=== PATIENT | male | born 1990 | race Caucasian/White ===

== ENCOUNTER 2022-01-14 15:09 | Emergency (ER) | payer MEDICAID, SELFPAY ==
[2022-01-14 15:35] VITALS: BP 127/86; PULSE 70; RESP 19; TEMP 36.7; O2SAT 98; BMI 22.1
[2022-01-14 15:53] LABS: UTC Influenza A Antigen Negative (Negative); UTC Influenza B Antigen Negative (Negative)
--- NOTE | 2022-01-14 15:55 | HMH.EDUTC ---
[facility] [place] Disposition Clinical Impression: Viral syndrome Disposition: Home, Self-Care Condition on Discharge: Good Instructions: DI for Viral Syndrome, DI for Fever (Symptom) -- Adult, DI for Headache Additional Instructions: *Monitor Temp, Over the counter Motrin or Tylenol as directed/as needed Tylenol every 4 hours and Motrin every 6 hours (as long as your family doctor has told you that you can take it) for fever or pain. and straight to ER if unable to lower temp less than 101.0 after medication given *Warm salt water gargles may help to soothe the throat *Throat Lozenges *Warm fluids like tea with honey may help to soothe the throat *Sleep elevated *Humidifier/Vaporizer Follow up IMMEDIATELY for new or worsening symptoms or no Noticeable improvement over the next 48-72 hours. 911 for difficulty breathing or swallowing Referrals: Reno Guerra MD [Primary Care Provider] - As needed Forms: Work/School Release Medical Decision Making - Willem Inquiry Pt receiving controlled substance: No Willem was queried for this patient: No Vital Signs: 01/14/22 15:35 Temperature 98.1 F Temperature Source Oral Pulse Rate [Right Brachial] 70 Respiratory Rate 19 Blood Pressure [Right Arm] 127/86 Blood Pressure Mean [Right Arm] 99 Blood Pressure Source [Right Arm] Automatic Cuff Blood Pressure Position [Right Arm] Sitting 02 Sat by Pulse Oximetry 98 Oxygen Delivery Method Room Air - Lab Data Lab results reviewed: Yes: I reviewed the patient's lab results. Lab Results 01/14/22 15:52: Influenza Type A Ag Negative, Influenza Type B Ag Negative [facility] [place] HPI - General Stated complaint: SAENZ Time Seen by Provider: 01/14/22 15:45 Mode of Arrival: Ambulatory Source of Information: Patient Limitations: No Limitations Description of Symptoms (Recalled from Triage Doc. 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 and he was unable to go to work today States that work required him to come in and get a doctor note State that he is feeling better now after taking some Motrin and just wanted to get checked for flu - Related Data Previous Rx's Medication Instructions Recorded sulfacetamide sodium 10 % eye drops 1 drp OPHTHALMIC QID 7 Days #5 ml 10/12/19 Allergies Allergy/AdvReac Type Severity Reaction Status Date / Time No Known Allergies Allergy Verified 10/12/19 15:57 - Worker's Comp Is this a Worker's Comp case?: No [facility] History - Hepatitis A Screen Attestation statement:: This patient has been screened for Hepatitis A risk factors. I have reviewed the patient's past medical history: Yes Medical History: Denies:: Cancer, Diabetes Mellitus Type 1, Diabetes Mellitus Type 2, MRSA Other Surgeries: Yes: No Previous Surgery Amputation: No Fractures: No - Social History Smoking Status: Current every day smoker Tobacco Type: cigarettes, smokeless tobacco # Packs/Day (cigarettes): 1 Alcohol Intake: never Substance Use Type: marijuana Occupational Status: other Housing: house Household Members: family Family Hx:: Non-contributory ROS Obtained: Yes All systems reviewed & no additional complaints, Yes Systems reviewed as appropriate & no additional complaints - Constitutional Constitutional: Reports system reviewed and no additional complaints, except as docu, Reports body ache, Reports fever(s), Reports headache(s) - ENT Ears, Nose, Mouth, and Throat: Reports system reviewed and no additional complaints, except as docu - Cardiovascular Cardiovascular: Reports system reviewed and
[2022-01-14 16:03] VITALS: BP 127/86; PULSE 70; RESP 19; TEMP 36.7; O2SAT 98
== END 2022-01-14 16:10 | disposition home or self-care (01) ==
PROVIDERS: Emergency Provider Nurse Practitioner; PCP Internal Medicine Adolescent Medicine
DX: B34.9 Viral infection, unspecified (principal); R50.9 Fever, unspecified; F17.210 Nicotine dependence, cigarettes, uncomplicated
CPT/HCPCS: 87804; 99212; G0463

== ENCOUNTER 2022-01-29 14:24 | Emergency (ER) | payer MEDICAID, SELFPAY ==
[2022-01-29 14:40] VITALS: BP 131/89; PULSE 77; RESP 19; TEMP 37.1; O2SAT 98; BMI 19.9
--- NOTE | 2022-01-29 15:37 | HMH.EDUTC ---
[facility] [place] Clinical Impression: Cough Disposition: Home, Self-Care Condition on Discharge: Good Instructions: Cough, DI for Headache Additional Instructions: Over the counter cough medications like Robitussin may help with cough Over the counter Ibuprofen may help with headache and if you need something else Tylenol may help Return if needed Straight to ER if any life threatening symptoms Referrals: Bonita Steiner MD [Primary Care Provider] - As needed Forms: Work/School Release Time of Disposition: 15:40 Medical Decision Making - Willem Inquiry Pt receiving controlled substance: No Willem was queried for this patient: No Vital Signs: 01/29/22 14:40 Temperature 98.7 F Temperature Source Oral Pulse Rate [Right Brachial] 77 Respiratory Rate 19 Blood Pressure [Right Arm] 131/89 Blood Pressure Mean [Right Arm] 103 Blood Pressure Source [Right Arm] Automatic Cuff Blood Pressure Position [Right Arm] Sitting 02 Sat by Pulse Oximetry 98 Oxygen Delivery Method Room Air [facility] [place] HPI - General Stated complaint: h/a, cough Time Seen by Provider: 01/29/22 15:37 Mode of Arrival: Ambulatory Source of Information: Patient Limitations: No Limitations Description of Symptoms (Recalled from Triage Doc. by RN): PATIENT C/O COUGH AND HEADACHE X 3 DAYS HEENT Symptoms (Recalled from RN notes): Yes Resp Symptoms (Recalled from RN notes): Yes Skin Symptoms (Recalled from RN notes): No MS Symptoms (Recalled from RN notes): No Functional Status (Recalled from RN notes): WNL - History of Present Illness Provider Complaint: Patient states that he has been working alot and thinks he is run down States that he has had a little cough for several days and woke up this morning with a headache States that he took some OTC medication and his headache is better but wasnt able to go to work so needed to get seen for a note - Related Data Allergies Allergy/AdvReac Type Severity Reaction Status Date / Time No Known Allergies Allergy Verified 10/12/19 15:57 - Worker's Comp Is this a Worker's Comp case?: No [facility] History - Hepatitis A Screen Attestation statement:: This patient has been screened for Hepatitis A risk factors. I have reviewed the patient's past medical history: Yes Medical History: Denies:: Cancer, Diabetes Mellitus Type 1, Diabetes Mellitus Type 2, MRSA Other Surgeries: Yes: No Previous Surgery Amputation: No Fractures: No - Social History Smoking Status: Current every day smoker Tobacco Type: cigarettes, smokeless tobacco # Packs/Day (cigarettes): 1 Alcohol Intake: never Substance Use Type: marijuana Occupational Status: other Housing: house Household Members: family Family Hx:: Non-contributory ROS Obtained: Yes All systems reviewed & no additional complaints, Yes Systems reviewed as appropriate & no additional complaints - Constitutional Constitutional: Reports system reviewed and no additional complaints, except as docu, Denies body ache, Denies chills, Denies fever(s), Reports headache(s) - ENT Ears, Nose, Mouth, and Throat: Reports system reviewed and no additional complaints, except as docu, Denies nasal congestion, Denies nasal discharge, Denies sinus pain, Denies sinus pressure, Denies sore throat - Cardiovascular Cardiovascular: Reports system reviewed and no additional complaints, except as docu - Respiratory Respiratory: Reports system reviewed and no additional complaints, except as docu, Denies shortness of breath, Reports cough, Denies dyspnea - Gastrointestinal Gastrointestingal: Reports: system reviewed and no additional complaints, except as docu Physical Exam - General General appearance: alert, in no apparent distress - Eye Eye exam: Present: normal appearance, PERRL, EOMI - ENT ENT exam: Present: normal exam, normal oropharynx, mucous membranes moist, TM's normal bilaterally, normal external ear exam - Respiratory Respiratory exam: Present: normal lung sounds
[2022-01-29 15:43] VITALS: BP 131/89; PULSE 77; RESP 19; TEMP 37.1; O2SAT 98
== END 2022-01-29 15:44 | disposition home or self-care (01) ==
PROVIDERS: Emergency Provider Nurse Practitioner; PCP Family Medicine
DX: R05.9 Cough, unspecified (principal); R51.9 Headache, unspecified
CPT/HCPCS: 99212; G0463

== ENCOUNTER 2022-02-09 15:36 | Emergency (ER) | payer OTHER, MEDICAID, SELFPAY ==
--- NOTE | 2022-02-09 16:11 | HMH.EDUTC ---
[facility] [place] Disposition Clinical Impression: Tonsillitis Disposition: Home, Self-Care Condition on Discharge: Good Instructions: DI for Strep Throat Additional Instructions: Take all antibiotics as prescribed until gone Replace toothbrush Prescriptions: Amoxicillin [Amoxicillin 875MG Tab] 875 mg PO Q12H 10 Days #20 tab Transmission Status: Pending to [id number] Ondansetron [Ondansetron Odt 8mg Tab] 8 mg PO Q8HP PRN 5 Days #20 tab PRN Reason: Nausea Transmission Status: Pending to [id number] Referrals: Reno Guerra MD [Primary Care Provider] - Forms: Work/School Release Time of Disposition: 16:20 Medical Decision Making - Willem Inquiry Pt receiving controlled substance: No - Lab Data Lab results reviewed: Yes: I reviewed the patient's lab results. Lab Results 02/09/22 16:00: Group A Strep Rapid Negative Orders (Tests/Meds): ORDERS Category Date Time Status Strep Screen Confirmation Stat Micro 02/09/22 16:00 Received [facility] [place] HPI - General Stated complaint: congestion and cough Time Seen by Provider: 02/09/22 16:11 - History of Present Illness Provider Complaint: Headache, sore throat, body aches, chills, nausea/vomiting X 2 days. No diarrhea. 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 Onset (ago): day(s) (2) Location: head, abdomen Relieving factors: none Exacerbating factors: none Associated symptoms: fever/chills, headaches, nausea/vomiting Treatments prior to arrival: NSAID - Related Data Previous Rx's Medication Instructions Recorded Amoxicillin [Amoxicillin 875MG 875 mg PO Q12H 10 Days #20 tab 02/09/22 Tab] Ondansetron [Ondansetron Odt 8mg 8 mg PO Q8HP PRN 5 Days #20 tab 02/09/22 Tab] Allergies Allergy/AdvReac Type Severity Reaction Status Date / Time No Known Allergies Allergy Verified 10/12/19 15:57 [facility] History - Hepatitis A Screen Attestation statement:: This patient has been screened for Hepatitis A risk factors. I have reviewed the patient's past medical history: Yes Medical History: Denies:: Cancer, Diabetes Mellitus Type 1, Diabetes Mellitus Type 2, MRSA Other Surgeries: Yes: No Previous Surgery Amputation: No Fractures: No - Social History Smoking Status: Current every day smoker Tobacco Type: cigarettes, smokeless tobacco # Packs/Day (cigarettes): 1 Alcohol Intake: never Substance Use Type: marijuana Occupational Status: other Housing: house Household Members: family Family Hx:: Non-contributory ROS Obtained: Yes All systems reviewed & no additional complaints - Constitutional Constitutional: Reports body ache, Reports chills, Reports fatigue, Reports fever(s), Reports headache(s) - ENT Ears, Nose, Mouth, and Throat: Reports sore throat - Respiratory Respiratory: Reports cough - Gastrointestinal Gastrointestingal: Reports: nausea, vomiting Physical Exam - General General appearance: alert, in no apparent distress - Head Head exam: normocephalic - Eye Eye exam: Present: PERRL - ENT ENT exam: Present: TM's normal bilaterally - Expanded ENT Exam Throat exam: Present: tonsillar erythema, tonsillomegaly, tonsillar exudate - Neck Neck exam: Present: normal inspection. Absent: lymphadenopathy - Chest Chest inspection: Present: normal inspection, symmetric chest wall rise - Respiratory Respiratory exam: Present: normal lung sounds bilaterally. Absent: respiratory distress, wheezes - Cardiovascular Cardiovascular exam: Present: regular rate, normal rhythm - Neurological Exam Neurological exam: Present: alert, oriented X3 - Psychiatric Psychiatric exam: Present: normal affect, normal mood - Skin Skin exam: Present: warm, dry, intact
[2022-02-09 16:13] LABS: Strep Scrn Group A (Rapid) Negative (Negative)
[2022-02-09 16:20] VITALS: BP 121/76; PULSE 89; RESP 17; TEMP 36.7; O2SAT 95; BMI 21.2
[2022-02-09 16:24] VITALS: BP 121/76; PULSE 89; RESP 17; TEMP 36.7
[2022-02-09 16:25] LABS: UTC Influenza A Antigen Negative (Negative); UTC Influenza B Antigen Negative (Negative)
== END 2022-02-09 16:25 | disposition home or self-care (01) ==
PROVIDERS: Emergency Provider Physician Assistant; PCP Internal Medicine Adolescent Medicine
DX: J02.9 Acute pharyngitis, unspecified (principal); R11.2 Nausea with vomiting, unspecified; M79.10 Myalgia, unspecified site; R50.9 Fever, unspecified; R51.9 Headache, unspecified; F17.210 Nicotine dependence, cigarettes, uncomplicated
CPT/HCPCS: 87430; 87804; 99213; G0463

== ENCOUNTER 2022-07-01 18:12 | Emergency (ER) | payer MEDICAID, SELFPAY ==
[2022-07-01 20:16] VITALS: BP 125/67; PULSE 79; RESP 19; TEMP 36.7; O2SAT 98; BMI 21.7
--- NOTE | 2022-07-01 20:20 | EXP.UTC ---
Discharge Plan Disposition Patient Disposition: Home, Self-Care Condition: Good Prescriptions Prescriptions: No Action ondansetron 8 MG tablet,disintegrating 8 mg PO Q8HP PRN (Reason: Nausea) 5 Days Qty: 20 0RF amoxicillin 875 MG tablet 875 mg PO Q12H 10 Days Qty: 20 0RF Referrals Follow up/Referrals: Provider,Referral, [Primary Care Provider] - See instructions Activity Restrictions/Add. Instructions Additional Instructions/Restrictions: *Monitor Temp, Over the counter Motrin or Tylenol as directed/as needed Tylenol every 4 hours and Motrin every 6 hours (as long as your family doctor has told you that you can take it) for fever or pain. and straight to ER if unable to lower temp less than 101.0 after medication given *Warm salt water gargles may help to soothe the throat *Throat Lozenges? *Warm fluids like tea with honey may help to soothe the throat? *Sleep elevated *Humidifier/Vaporizer Your throat swab was sent for culture. Those results are typically sent to your primary care. Be sure to follow up in 2-3 days with your family doctor/primary care physician if no improvement so they can review those result and treat if necessary. If you don?t have a primary care doctor, I recommend you get one but in the mean time, you will have to return to a walk in clinic Follow up IMMEDIATELY for new or worsening symptoms or no Noticeable improvement over the next 48-72 hours. 911 for difficulty breathing or swallowing You were tested for today for COVID19 your test result should be back in the next 24-48 hours, you may check your results on the [facility] [employer] Portal Clinical Impressions Clinical Impression: Viral syndrome Stand Alone Forms Stand Alone Forms: Work/School Release Instructions Patient Instructions: DI for Viral Upper Respiratory Infection -- Adult Discharge ED Provider: Carole Bernabe [facility] [place] HPI General Stated complaint: congesting cough Mode of Arrival: Ambulatory Source of Information: Patient Limitations: No Limitations Time Seen by Provider: 07/01/22 20:20 Description of Symptoms (Recalled from Triage Doc. by RN): coughing sneezing body aches fever HEENT Symptoms (Recalled from RN notes): Yes Resp Symptoms (Recalled from RN notes): Yes Skin Symptoms (Recalled from RN notes): No MS Symptoms (Recalled from RN notes): No Functional Status (Recalled from RN notes): n/a History of Present Illness Provider Complaint: Patient states that he was around his wifes friend that tested positive for Strep today States that he started feeling bad on Friday but today started having body aches, chills sneezing and low grade fever so he came in wanting to get checked for COVID and strep throat Related Data Previous Rx's Medication Instructions Recorded amoxicillin 875 mg tablet 875 mg PO Q12H 10 days #20 tabs 02/09/22 ondansetron 8 mg disintegrating 8 mg PO Q8HP PRN Nausea 5 days #20 02/09/22 tablet tabs Allergies Allergy/AdvReac Type Severity Reaction Status Date / Time No Known Allergies Allergy Verified 10/12/19 15:57 Worker's Comp Is this a Worker's Comp case?: No PFSH PFSH Social History Smoking Status: Current every day smoker tobacco type: cigarettes packs per day: 1 and smokeless tobacco alcohol intake: never substance use type: marijuana current occupational status: other Travel in the last 8 weeks: None household members: family housing: house ROS Obtained: Yes All systems reviewed & no additional complaints except as documented and Yes Systems reviewed as appropriate & no additional complaints except as documented Constitutional Constitutional: Reports system reviewed and no additional complaints, except as documented, Reports as per HPI, Reports body ache, Reports chills and Reports fever(s) ENT Ears, Nose, Mouth, and Throat: Reports system reviewed and no additional complaints, except as documented, Reports as per HPI, Reports n
[2022-07-01 20:24] LABS: UTC Influenza A Antigen Negative (Negative); UTC Influenza B Antigen Negative (Negative); UTC Strep Screen (Rapid) Negative (Negative)
[2022-07-01 20:36] VITALS: BP 125/67; PULSE 79; RESP 19; TEMP 36.7; O2SAT 98
== END 2022-07-01 20:36 | disposition home or self-care (01) ==
PROVIDERS: Emergency Provider Nurse Practitioner
DX: B34.9 Viral infection, unspecified (principal); M79.10 Myalgia, unspecified site; R05.9 Cough, unspecified; R50.9 Fever, unspecified; F17.210 Nicotine dependence, cigarettes, uncomplicated
CPT/HCPCS: 87804; 87880; 99213; G0463

== ENCOUNTER 2023-05-08 05:45 | Emergency (ER) | payer MEDICAID, SELFPAY ==
[2023-05-08] VITALS (7 sets, daily range): BP systolic 106–135; BP diastolic 68–88; PULSE 56–79; RESP 16–18; TEMP 36.5–36.7; O2SAT 95–99; BMI 21.2
--- NOTE | 2023-05-08 05:57 | XR_ITS ---
PROCEDURE INFORMATION: Exam: XR Chest Exam date and time: 05/08/2023 6:04 AM Age: 32 years old Clinical indication: Shortness of breath; Additional info: nicho HERNANDEZ TECHNIQUE: Imaging protocol: Radiologic exam of the chest. Views: 1 view. COMPARISON: ABDPELWO CT abdomen pelvis wo con 04/27/2018 5:25 AM FINDINGS: Lungs: Unremarkable. No consolidation. Pleural spaces: Unremarkable. No pleural effusion. No pneumothorax. Heart/Mediastinum: Unremarkable. No cardiomegaly. Bones/joints: Unremarkable. IMPRESSION: No acute findings.
--- NOTE | 2023-05-08 05:59 | HMH.EDGENADL ---
Discharge Plan Disposition Patient Disposition: Home, Self-Care Condition: Good Prescriptions Prescriptions: No Action cetirizine [Zyrtec] 10 mg tablet 10 mg PO DAILY PRN ondansetron HCl 8 mg tablet 8 mg PO Q12H PRN (Reason: nausea and vomiting) Qty: 14 0RF Referrals Follow up/Referrals: Provider,Referral, [Primary Care Provider] - See instructions Activity Restrictions/Add. Instructions Additional Instructions/Restrictions: You were evaluated in the emergency department today. Please picking tech your prescription for Zofran and take as needed for symptoms. Take Tylenol and ibuprofen at home as needed for pain and fever. Hydrate is much as possible. Return to the emergency department for new or worsening symptoms. Clinical Impressions Clinical Impression: Viral URI with cough, Acute shoulder pain, Vomiting Stand Alone Forms Stand Alone Forms: Work/School Release Instructions Patient Instructions: DI for Viral Upper Respiratory Infection -- Adult, DI for Vomiting -- Adult Discharge ED Provider: Colten Mcmillan General Adult HPI <Rosita Hutchison DO - Last Filed: 05/08/23 06:48> General Chief complaint: Upper Respiratory Infection Stated complaint: vomiting, pain in neck and shoulder, SOA Time Seen by Provider: 05/08/23 05:48 Mode of Arrival: Ambulatory Source of Information: Patient Limitations: No Limitations Description of Symptoms (Recalled from ER Triage Doc. by RN): pt c/o SAENZ, chest congestion, SOA while laying down x couple of days. also c/o rt shoulder and neck pain x 2 weeks. pt was seen by pcp on 05/06 and diagnosed with rhinovirus and recieved tordol and steriod shot. History of Present Illness HPI narrative: This patient is a 32-year-old male who vapes but denies any significant past medical history presented to the emergency department for evaluation with concern for cough, congestion, nausea, vomiting, and sore throat for several days. He reports that he is also had right shoulder and neck pain that seems to be associated with vomiting, coughing, and moving since Friday as well. He states that as long as he lays still, his shoulder and neck do not hurt. He denies any chest pain, significant abdominal pain, hematemesis, hematochezia, melena, or other concerns. He does note that he feels short of breath when lying flat. Of note, on medical record review he was evaluated outpatient clinic on 05/06. He was prescribed Zofran for nausea and vomiting at the time and was discharged home with diagnosis of likely viral infection. He states that he has not yet taken any of the Zofran. He states that they told him at that time that he had rhinovirus. Related Data Home Medications Medication Instructions Recorded Confirmed cetirizine 10 mg tablet (Zyrtec) 10 mg PO DAILY PRN 05/06/23 05/06/23 Previous Rx's Medication Instructions Recorded ondansetron HCl 8 mg tablet 8 mg PO Q12H PRN nausea and 05/06/23 vomiting #14 tabs Allergies Allergy/AdvReac Type Severity Reaction Status Date / Time No Known Allergies Allergy Verified 05/06/23 09:59 PFSH <Rosita Hutchison DO - Last Filed: 05/08/23 06:48> PFS Disclaimer: The information contained in this section may have been updated after the patient was seen, as this information can be updated by other users. Social History Smoking Status: Current every day smoker tobacco type: cigarettes packs per day: 1 and smokeless tobacco alcohol intake: never substance use type: marijuana current occupational status: other Travel in the last 8 weeks: None household members: family housing: house <Rosita Hutchison DO - Last Filed: 05/08/23 06:48> ROS Obtained: Yes All systems reviewed & no additional complaints except as documented Physical Exam <Rosita Hutchison DO - Last Filed: 05/08/23 06:48> General General appearance: alert and in no apparent distress Head Head exam: atra
[2023-05-08 06:08] LABS: Basophils % 0.4 % (0.1-2.0); Eosinophils # 0.1 K/mm3 (0.0-0.4); Hematocrit 49.5 % (42.0-52.0); Hemoglobin 17.2 g/dL (14.1-18.0); Lymphocytes # 1.7 K/mm3 (0.7-4.5); Lymphocytes % 24.7 % (10-50); Mean Corpuscular HGB Conc 34.7 g/dL (31.8-35.4); Mean Corpuscular Hemoglobin 31.7 pg (27.0-31.2); Mean Corpuscular Volume 91.2 fl (80-94); Mean Platelet Volume 9.2 fl (7.4-10.4); Monocytes # 0.3 K/mm3 (0.1-1.0); Neutrophils # 4.8 K/mm3 (1.8-7.8); Neutrophils % 68.8 % (37.0-80.0); Platelet Count 182 K/mm3 (142-424); Red Blood Count 5.43 M/mm3 (4.60-6.20); Red Cell Distribution Width 13.1 % (11.5-17.5)
[2023-05-08 06:17] LABS: Alanine Aminotransferase 30 U/L (12-78); Albumin Level 4.9 g/dl (3.5-5.0); Albumin/Globulin Ratio 1.5 (1.1-1.8); Alkaline Phosphatase 58 U/L (38-126); Anion Gap 16.2 mEq/L (5-15); Aspartate Amino Transferase 28 U/L (17-59); Bilirubin,Total 0.6 mg/dl (0.2-1.3); Blood Urea Nitrogen 11 mg/dl (9-20); Calcium 9.5 mg/dl (8.4-10.2); Carbon Dioxide 27 mmol/L (22.0-30.0); Chloride 104 mmol/L (98-107); Creatinine Clearance Estimated 117 mL/min (50-200); Estimated Glomerular Filt Rate 87 ml/min (>60); GFR (African American) 105 ML/MIN (>60); Globulin 3.2 g/dL (1.3-3.2); Glucose 106 mg/dl (74-100); Lipase 60 U/L (23-300); Potassium 4.2 mmoL/L (3.5-5.1); Sodium 143 mmol/L (136-145); Total Protein,Serum 8.1 g/dl (6.3-8.2)
--- NOTE | 2023-05-08 06:22 | ECG_ITS ---
APPROVED REPORT Exam: Resting ECG HR:59 bpm ECG Measurements Heart Rate 59 AXES WY 206 P 61 QRSd 101 QRS 70 QT 399 T 65 QTc 399 Conclusion SINUS BRADYCARDIA POSSIBLE LEFT ATRIAL ENLARGEMENT [-0.1mV P-WAVE IN V1/V2] POSSIBLE LEFT VENTRICULAR HYPERTROPHY [VOLTAGE CRITERIA PLUS LAE OR QRS WIDENING] MODERATE ST DEPRESSION [0.05+ mV ST DEPRESSION] ABNORMAL ECG UNCONFIRMED REPORT Electronically signed by : Reno Guerra MD 05/08/2023 18:32:30
[2023-05-08 06:38] LABS: Coronavirus 19, PCR Not Detected (NotDetected); Influenza A, PCR Not Detected (NotDetected); Influenza B, PCR Not Detected (NotDetected)
[2023-05-08 06:57] LABS: Troponin I < 0.01 ng/ml (0.00-0.034)
[2023-05-08 07:09] LABS: Erythrocyte Sedimentation Rate 1 mm/hr (0-15)
--- NOTE | 2023-05-08 07:25 | PC.NURSE ---
ROUNDED ON PT, ON PHONE. NO NEEDS AT THIS TIME
[2023-05-08 07:45] LABS: C-Reactive Protein 3.2 mg/L (0-4)
--- NOTE | 2023-05-08 08:49 | PC.NURSE ---
lab states 7 more minutes until troponin result
[2023-05-08 08:58] LABS: Troponin I < 0.01 ng/ml (0.00-0.034)
== END 2023-05-08 09:30 | disposition home or self-care (01) ==
PROVIDERS: Emergency Medicine; Emergency Provider Emergency Medicine
DX: J06.9 Acute upper respiratory infection, unspecified (principal); R05.9 Cough, unspecified; R11.10 Vomiting, unspecified; M25.511 Pain in right shoulder; B34.9 Viral infection, unspecified; R00.1 Bradycardia, unspecified; F17.210 Nicotine dependence, cigarettes, uncomplicated; R06.02 Shortness of breath; R51.9 Headache, unspecified
CPT/HCPCS: 71045; 80053; 83690; 84484; 85025; 85651; 86140; 87636; 93005; 96361; 96374; 96375; 99285; J0131; J2405

== ENCOUNTER 2023-09-04 06:55 | Emergency (ER) | payer MEDICAID, SELFPAY ==
[2023-09-04 06:55] VITALS: BP 144/92; PULSE 86; RESP 16; TEMP 36.9; O2SAT 98; BMI 21.8
--- NOTE | 2023-09-04 07:07 | CT_ITS ---
FINAL REPORT TECHNIQUE: Axial CT images were performed through the head. Coronal reformatted images were submitted. This study was performed with techniques to keep radiation doses as low as reasonably achievable (ALARA). Individualized dose reduction techniques using automated exposure control or adjustment of mA and/or kV according to the patient's size were employed. CLINICAL HISTORY: tingling in arms, RUE worse FINDINGS: The ventricles are normal in size. There is no evidence of hemorrhage. There is no mass or edema identified. There is no abnormal extra-axial fluid seen. The sinuses are well aerated. IMPRESSION: No acute intracranial process. Reviewed, Interpreted and Dictated by Antolin Alves MD Transcribed by Nella Porter Authenticated and [facility]
--- NOTE | 2023-09-04 07:07 | CT_ITS ---
FINAL REPORT TECHNIQUE: thin section axial CT with and without IV contrast supplemented with multiplanar 3-D reconstruction of the head. This study was performed with techniques to keep radiation doses as low as reasonably achievable, (ALARA)individualized dose reduction techniques using automated exposure control or adjustment of mA and/or kV according to the patient's size were employed. CLINICAL HISTORY: tingling in arms, R worse FINDINGS: The cranial circulation is unremarkable. There is no significant stenosis, aneurysm or occlusion. IMPRESSION: No acute process. Reviewed, Interpreted and Dictated by Antolin Alves MD Transcribed by Nella Porter Authenticated and [facility]
--- NOTE | 2023-09-04 07:07 | CT_ITS ---
FINAL REPORT TECHNIQUE: NASCET technique utilized for stenosis evaluation. CLINICAL HISTORY: tingling and pain R arm, tingling L arm FINDINGS: RIGHT CAROTID: No significant stenosis is seen of the cervical common or internal carotid artery. LEFT CAROTID: No significant stenosis seen of the cervical common or internal carotid artery. VERTEBRALS: The vertebrals are patent. No significant stenosis is present. IMPRESSION: No significant arterial abnormality. Reviewed, Interpreted and Dictated by Antolin Alves MD Transcribed by Nella Porter Authenticated and [facility]
--- NOTE | 2023-09-04 07:07 | CT_ITS ---
FINAL REPORT TECHNIQUE: Axial images were obtained of the cervical spine by computed tomography. Coronal and sagittal reconstruction process performed. This study was performed with techniques to keep radiation doses as low as reasonably achievable (ALARA). Individualized dose reduction techniques using automated exposure control or adjustment of mA and/or kV according to the patient''s size were employed. CLINICAL HISTORY: pain and tingling in R arm, tingling L FINDINGS: Cervical vertebrae show normal height. There is moderate reversal of the cervical lordosis. There is mild disc space narrowing at C5-6 and C6-7. There is no malalignment. The facets are properly aligned. There is a small right paracentral disc protrusion at C5-6 with mild compromise of the right side of the spinal canal. IMPRESSION: Small right paracentral disc protrusion at C5-6 with mild compromise of the right spinal canal. Reviewed, Interpreted and Dictated by Antolin Alves MD Transcribed by Nella Porter Authenticated and [facility]
--- NOTE | 2023-09-04 07:09 | HMH.EDGENADL ---
Discharge Plan Disposition Patient Disposition: Home, Self-Care Condition: Good Prescriptions Prescriptions: New methocarbamol 500 mg tablet 500 mg PO Q8H PRN (Reason: muscle spasm) Qty: 20 0RF lidocaine 5 % adhesive patch,medicated 1 patch topical DAILY Qty: 5 0RF Rx Instructions: leave on most painful area for up to 12 hrs. remove after 12 hours and leave off for 12 hours before putting on a new patch No Action cetirizine [Zyrtec] 10 mg tablet 10 mg PO DAILY PRN amoxicillin-pot clavulanate 875-125 mg tablet 1 tab PO BID 10 Days Qty: 20 0RF albuterol sulfate 90 mcg/actuation HFA aerosol inhaler 1 inh inhalation QID Qty: 6.7 2RF ondansetron 4 mg tablet,disintegrating 4 mg PO Q8H PRN (Reason: nausea and vomiting) Qty: 14 0RF Referrals Follow up/Referrals: Allen Marley DO [Staff Physician] - See instructions (C5/C6 disc bulge with radiculopathy symptoms in the arms) Provider,Referral, [Primary Care Provider] - See instructions Activity Restrictions/Add. Instructions Additional Instructions/Restrictions: You were evaluated in the ER today for concerns of bilateral arm tingling, right arm pain. You do have a disc bulge at C5/C6. I have given you a referral to orthopedics for reevaluation. Also make an appoint with your primary care physician for reevaluation in 2 to 3 days. Take the prescribed medications if needed for muscle spasm or pain. Also take Tylenol or ibuprofen if needed, do not exceed the recommended doses on the bottles. Return to the ER with any new, worsening, or otherwise concerning symptoms. Clinical Impressions Clinical Impression: Tingling of right upper extremity, Tingling of left upper extremity, Arm pain, right, Bulging of cervical intervertebral disc Discharge ED Provider: Jimi De Santiago Adult HPI General Chief complaint: PAIN Stated complaint: R shoulder pain Time Seen by Provider: 09/04/23 07:07 Mode of Arrival: EMS Source of Information: Patient Limitations: No Limitations Description of Symptoms (Recalled from ER Triage Doc. by RN): pt c/o rt shoulder pain x 2 days. this morning pt woke up after 2 hours pt's began having bilateral arm tingling. pt denies any trauma or injury. History of Present Illness HPI narrative: This 33-year-old male with no chronic medical conditions presents to the ER with concerns of right arm/shoulder pain for 2 days. Patient woke up after a nap with this pain 2 days ago. 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 Patient states the tingling in his left arm is worse when the blood pressure cuff goes up and his hand contracts when this happens. Patient states he has pain in the right side of his neck muscles, no midline pain. He denies any injuries or falls. He states he has never had symptoms like this before. He does not have any other positive review of systems at this time. He denies headache, vision changes, other numbness, tingling, or weakness. Related Data Home Medications Medication Instructions Recorded Confirmed cetirizine 10 mg tablet (Zyrtec) 10 mg PO DAILY PRN 05/06/23 08/19/23 Previous Rx's Medication Instructions Recorded albuterol sulfate 90 mcg/actuation 1 inh inhalation QID #6.7 grams 08/19/23 aerosol inhaler amoxicillin 875 mg-potassium 1 tab PO BID 10 days #20 tabs 08/19/23 clavulanate 125 mg tablet ondansetron 4 mg disintegrating 4 mg PO Q8H PRN nausea and 08/19/23 tablet vomiting #14 tabs lidocaine 5 % topical patch 1 patch topical DAILY #5 ea 09/04/23 methocarbamol 500 mg tablet 500 mg PO Q8H PRN muscle spasm #20 09/04/23 tabs Allergies Allergy/AdvReac Type Severity Reaction Status Date / Time No Known Allergies Allergy Verified 08/19/23 09:37 [facility] Disclaimer: The information contained in this section may have been updated after the patient was seen, as this information can be updated by other users. Medical History Seasonal allergies Surgical History No significant past surgical history Family History Other No significant family history Social History Smoking Status: Current every day smoker tobacco type: cigarettes packs per day: 1 and smokeless tobacco alcohol intake: never substance use type: marijuana current occupational status: other Travel in the last 8 weeks: None household members: family housing: house ROS Obtained: Yes All systems reviewed & no additional complaints except as documented Constitutional Constitutional: Denies chills, Denies fever(s), Denies headache(s) and Denies weakness Eyes Eyes: Denies change in vision ENT Ears, Nose, Mouth, and Throat: Denies dizziness, Denies headache(s), Denies nasal congestion, Reports neck pain and Denies sore throat Cardiovascular Cardiovascular: Denies chest pain, Denies dyspnea and Denies leg edema Respiratory Respiratory: Denies cough and Denies dyspnea Gastrointestinal Gastrointestingal: Denies constipation, diarrhea, nausea or vomiting Genitourinary Male Genitourinary: Denies difficulty urinating Musculoskeletal Musculoskeletal: Reports arthralgias, Denies back pain, Denies deformity, Denies joint stiffness, Denies joint swelling, Reports myalgias, Reports neck pain, Denies numbness and Reports tingling Integumentary/Breasts Skin/Breast: Denies change in pigmentation Neurologic Neurologic: Denies dizziness, Denies headache(s), Denies numbness, Reports tingling and Denies weakness Physical Exam General General appearance: alert and in no apparent distress Head Head exam: atraumatic and normocephalic Eye Eye exam: Present PERRL and EOMI ENT ENT exam: Present mucous membranes moist Neck Neck exam: Present normal inspection, full ROM, trachea midline and tenderness (Right cervical paraspinal muscle tenderness to palpation, no midline tenderness, deformity, or step-off); Absent thyromegaly Chest Chest inspection: Present symmetric chest wall rise Respiratory Respiratory exam: Present normal lung sounds bilaterally; Absent respiratory distress, wheezes or stridor Cardiovascular Cardiovascular exam: Present regular rate and normal rhythm Abdominal Exam Abdominal exam: Present soft; Absent distention or tenderness Extremities Exam Extremities exam: Present normal inspection and full ROM; Absent tenderness or joint swelling Back Exam Back exam: Absent straight leg raise (R) or straight leg raise (L) Neurological Exam Neurological exam: Present alert, oriented X3 and CN II-XII intact; Absent motor sensory deficit (No identifiable deficits, sensation equal in bilateral upper extremities, strength intact throughout) Psychiatric Psychiatric exam: Present normal affect and normal mood Skin Skin exam: Present warm and dry Medical Decision Making Willem Inquiry Pt receiving controlled substance: No Vital Signs: 09/04/23 06:55 09/04/23 07:30 Temperature 98.4 F Temperature Source Oral Pulse Rate 78 Pulse Rate [Right] 86 Respiratory Rate 16 Blood Pressure 129/90 Blood Pressure [Right Arm] 144/92 H Blood Pressure Mean 103 Blood Pressure Mean [Right Arm] 109 02 Sat by Pulse Oximetry 98 96 Lab Data Lab Results 09/04/23 07:15: WBC 5.8, RBC 5.35, Hgb 17.0, Hct 49.2, MCV 92.0, MCH 31.8 H, MCHC 34.6, RDW 13.3, Plt Count 150, MPV 8.9, Neut % (Auto) 63.4, Lymph % (Auto) 30.2, [place] % (Auto) 4.7, Eos % (Auto) 1.1, Baso % (Auto) 0.7, Neut # (Auto) 3.7, Lymph # (Auto) 1.8, [place] # (Auto) 0.3, Eos # (Auto) 0.1, Baso # (Auto) 0.0, Sodium 140, Potassium 4.0, Chloride 107, Carbon Dioxide 24, Anion Gap 13.0, BUN 10, Creatinine 0.90, Estimated Creat Clear 129, Estimated GFR 98, Est GFR ( Amer) 118, Glucose 103 H, Calcium 8.9, Total Bilirubin 0.5, AST 34, ALT 37, Alkaline Phosphatase 42, Troponin I < 0.01, Total Protein 7.3, Albumin 4.7, Globulin 2.6, Albumin/Globulin Ratio 1.8, TSH 1.11, Free T4 0.80 09/04/23 07:15 09/04/23 07:15 Orders (Tests/Meds): ED MEDICATIONS Generic Name Dose Route Start Last Admin Trade Name Freq PRN Reason Stop Dose Admin Sodium Chloride 10 ml 09/04/23 08:04 09/04/23 08:05 Sodium Chloride 0.9% 10ml Syr (Rad Only) IV 10/04/23 08:03 10 ml NEEDED PRN Administration Maintain IV Site Discontinued Medications Generic Name Dose Route Start Last Admin Trade Name Freq PRN Reason Stop Dose Admin Acetaminophen 1,000 mg 09/04/23 07:09 09/04/23 07:43 Acetaminophen 500mg Tab PO 09/04/23 07:10 1,000 mg ONCE ONE Administration Iopamidol 100 ml 09/04/23 08:04 09/04/23 08:05 Iopamidol-370 (76%);100ml Bottle IV 09/04/23 08:05 100 ml ONCE ONE Administration Lidocaine 1 each 09/04/23 07:09 09/04/23 07:42 Lidocaine 5% Transdermal Patch TP 09/04/23 07:10 1 each ONCE ONE Administration Methocarbamol 500 mg 09/04/23 09:00 Methocarbamol 500mg Tablet PO 10/04/23 08:59 BID LAURA Methocarbamol 500 mg 09/04/23 07:44 09/04/23 07:45 Methocarbamol 500mg Tablet PO 09/04/23 07:45 500 mg ONCE ONE Administration Sodium Chloride 50 ml 09/04/23 08:04 09/04/23 08:04 0.9 % Sodium Chloride 50 Ml Vial IV 09/04/23 08:05 50 ml ONCE ONE Administration ORDERS Category Date Time Status CT angio head Stat Cat Scan 09/04/23 07:[address] angio neck Stat Cat Scan 09/04/23 07:[address] cervical spine wo con Stat Cat Scan 09/04/23 07:[address] head/brain wo con Stat Cat Scan 09/04/23 07:07 Completed CBC w/Auto Diff [Complete Blood Count Auto Diff] Stat Lab 09/04/23 07:15 Completed CMP [Comprehensive Metabolic Panel] Stat Lab 09/04/23 07:15 Completed Calcium, Ionized Stat Lab 09/04/23 07:25 Received Free T4 (Free Thyroxine) Stat Lab 09/04/23 07:15 Completed TSH [Thyroid Stimulating Hormone] Stat Lab 09/04/23 07:15 Completed Trop I [Troponin I] Stat Lab 09/04/23 07:15 Completed Troponin I Q3H Lab 09/04/23 10:30 Ordered Troponin I Q3H Lab 09/04/23 13:30 Ordered ECG initial Besson Routine Y 09/04/23 07:10 Completed Medical Decision Narrative: In summary, this 33year old male presents to the emergency department today with right arm pain and tingling, left arm tingling. Symptoms initially started 2 days ago with pain and today the tingling developed. On initial evaluation patient is hemodynamically stable, afebrile, GCS 15, no focal neurologic deficits identified, no weakness, no sensory deficits appreciated, no findings of injury, symptoms do not change with movement of the neck. Patient has tenderness of the right cervical paraspinal muscles but no midline tenderness or deformity. 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 Differential diagnosis includes but is not limited to radiculopathy, muscle spasm, disc bulge, electrolyte abnormality, thyroid abnormality, I did consider stroke however patient does not have any lateralizing deficits and his symptoms are not consistent with a focal lesion, I am still ordering angiography to assess for this. Additionally I considered ACS with the initial right arm pain, however I have much lower suspicion for this. Based on these concerns, I ordered appropriate labs including cardiac workup, thyroid studies, and CT imaging of the head and neck including angiography. ECG personally interpreted demonstrates normal sinus rhythm, rate 69, no interval abnormalities, normal axis, findings consistent with benign early repolarization. Patient received Tylenol, lidocaine patch, Robaxin for treatment. Labs personally reviewed demonstrate CBC with no leukocytosis or anemia, CMP without actionable electrolyte abnormality, initial troponin less than 0.01, glucose 103, TSH and T4 normal. CT imaging personally interpreted demonstrates no acute intracranial abnormality such as bleed or mass on the CT Noncon of the head. See radiology read for final interpretation. I personally interpreted CT of the cervical spine and I do not appreciate any fracture or malalignment, see radiology read for full interpretation. Radiology interpretation of CT cervical spine does mention concern for C5/C6 disc protrusion. This is consistent with patient's symptoms. CT angiography of the head and neck was reviewed and does not demonstrate any acute stenosis or blockage. See reads for full interpretations. On reassessment patient has had improvement of his symptoms and states the tingling is gone in his arms. I discussed his results with him. He is reassured by the workup. He is appropriate for discharge at this time. I provided referral to orthopedics for further evaluation of his disc bulge, I prescribed methocarbamol and lidocaine patches for symptomatic management. Patient was given instructions on symptomatic management, follow up instructions, and return precautions for the emergency department. Patient indicated understanding and was discharged in stable condition. Critical Care Critical Care Time Critical Care Time: No
--- NOTE | 2023-09-04 07:10 | ECG_ITS ---
APPROVED REPORT Exam: Resting ECG HR:69 bpm ECG Measurements Heart Rate 69 AXES GA 191 P 76 QRSd 97 QRS 75 QT 375 T 72 QTc 395 Conclusion SINUS RHYTHM LEFT ATRIAL Abnormality ST ELEVATION, PROBABLY EARLY REPOLARIZATION [ST ELEVATION WITH NORMALLY INFLECTED T-WAVE] MODERATE ST DEPRESSION [0.05+ mV ST DEPRESSION] ABNORMAL ECG UNCONFIRMED REPORT Electronically signed by : Reno Guerra MD 09/05/2023 07:48:46
[2023-09-04 07:28] LABS: Basophils % 0.7 % (0.1-2.0); Eosinophils # 0.1 K/mm3 (0.0-0.4); Eosinophils % 1.1 % (0.1-12.0); Hematocrit 49.2 % (42.0-52.0); Lymphocytes # 1.8 K/mm3 (0.7-4.5); Lymphocytes % 30.2 % (10-50); Mean Corpuscular HGB Conc 34.6 g/dL (31.8-35.4); Mean Corpuscular Hemoglobin 31.8 pg (27.0-31.2); Mean Platelet Volume 8.9 fl (7.4-10.4); Monocytes # 0.3 K/mm3 (0.1-1.0); Monocytes % 4.7 % (1.7-9.3); Neutrophils # 3.7 K/mm3 (1.8-7.8); Neutrophils % 63.4 % (37.0-80.0); Platelet Count 150 K/mm3 (142-424); Red Blood Count 5.35 M/mm3 (4.60-6.20); Red Cell Distribution Width 13.3 % (11.5-17.5); White Blood Count 5.8 K/mm3 (4.8-10.8)
[2023-09-04 07:30] VITALS: BP 129/90; PULSE 78; O2SAT 96
[2023-09-04 07:34] LABS: Chloride 107 mmol/L (98-107)
[2023-09-04 07:35] LABS: Sodium 140 mmol/L (136-145)
[2023-09-04 07:37] LABS: Alanine Aminotransferase 37 U/L (12-78); Albumin Level 4.7 g/dl (3.5-5.0); Albumin/Globulin Ratio 1.8 (1.1-1.8); Alkaline Phosphatase 42 U/L (38-126); Aspartate Amino Transferase 34 U/L (17-59); Bilirubin,Total 0.5 mg/dl (0.2-1.3); Blood Urea Nitrogen 10 mg/dl (9-20); Calcium 8.9 mg/dl (8.4-10.2); Carbon Dioxide 24 mmol/L (22.0-30.0); Creatinine Clearance Estimated 129 mL/min (50-200); Estimated Glomerular Filt Rate 98 ml/min (>60); GFR (African American) 118 ML/MIN (>60); Globulin 2.6 g/dL (1.3-3.2); Glucose 103 mg/dl (74-100); Total Protein,Serum 7.3 g/dl (6.3-8.2)
[2023-09-04] MEDS: LIDOCAINE 5% TRANSDERMAL PATCH 1 EACH TP (07:42)
[2023-09-04] MEDS: ACETAMINOPHEN 500MG TAB 1000 MG PO (07:43)
[2023-09-04] MEDS: METHOCARBAMOL 500MG TABLET 500 MG PO (07:45)
[2023-09-04 07:58] LABS: Troponin I < 0.01 ng/ml (0.00-0.034)
[2023-09-04] MEDS: 0.9 % SODIUM CHLORIDE 50 ML VIAL IV (08:04)
[2023-09-04] MEDS: IOPAMIDOL-370 (76%);100ML BOTTLE 100 ML IV (08:05)
[2023-09-04] MEDS: SODIUM CHLORIDE 0.9% 10ML SYR (RAD ONLY) 10 ML IV (08:05)
[2023-09-04 08:08] LABS: Thyroid Stimulating Hormone 1.11 uIU/mL (0.465-4.68)
[2023-09-04 09:57] VITALS: BP 126/74; PULSE 69; RESP 16; TEMP 36.9; O2SAT 96
[2023-09-05 10:13] LABS: Calcium, Ionized 4.8 mg/dL (4.5-5.6)
== END 2023-09-04 09:58 | disposition home or self-care (01) ==
PROVIDERS: Emergency Provider Emergency Medicine
DX: M25.511 Pain in right shoulder (principal); R20.2 Paresthesia of skin; M50.20 Other cervical disc displacement, unspecified cervical region; F17.210 Nicotine dependence, cigarettes, uncomplicated
CPT/HCPCS: 70450; 70496; 70498; 72125; 80053; 82330; 84439; 84443; 84484; 85025; 93005; 99285; Q9967

== ENCOUNTER 2023-10-03 09:00 | Outpatient (RCR) | payer MEDICAID, SELFPAY ==
--- NOTE | 2023-09-16 12:18 | HMH.PTOPEV ---
PT Outpatient Evaluation Rehab PT Outpatient Evaluation Start: 09/16/23 09:49 Freq: Status: Active Protocol: Document 09/16/23 09:49 SHANNANSHANE (Rec: 09/16/23 12:18 LIU [id number]) E-signed By Rosita Wilson, PT Outpatient Therapy Subjective History Subjective History Pt is a 33 y/o male who reports onset of neck pain and right shoulder pain when he woke up from a 2 hr nap sleeping on his back on . Pt reports he tried resting for a few days without improvement in symptoms. 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 Pt reports work was concerned for a stroke so he went to [facility] ED via EMS. Pt reports during transportation his entire body and his teeth went numb as well which lasted for a couple hours then resolved. Pt also states when they checked his blood pressure on the left arm he was unable to use his left hand. Pt denies such symptoms since. Pt had a cervical spine CT scan on with impression of Small right paracentral disc protrusion at C5-6 with mild compromise of the right spinal canal. Pt also had head CT and neck/head CTA scans on without acute findings. Pt denies trauma to head, neck or jaw area. Pt reports he was prescribed muscle relaxers at the ER which help him sleep but do not help with overall pain. Pt also reports he was prescribed Dexamethasone which he states does not help either. Pt reports he saw a chiropractor recently where they manipulated his neck and performed cupping, pt states this temporarily increased pain but is now back to baseline. Pt reports current symptoms of right-sided neck pain with radiation into the right shoulder and elbow. Pt reports intermittent numbness/ tingling of the entire right arm and hand. Pt also reports intermittent numbness of all of his teeth. Pt also reports upper right back pain along his shoulder blade and a constant headache. Pt reports headaches start at the base of his neck and refer into the back of his head on both sides . Pt denies light/noise sensitivity, vomiting, or dizziness with headaches. Pt reports some nausea. Pt denies fever or b/b dysfunction, reports one episode of night sweats. Pt reports pain is worse in the morning and is aggravated by generalized movement, standing, driving, and neck movement. Pt denies further comorbidities to report. 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 No deviation in tongue noted either. Negative Tromner's sign upon examination New diagnosis of cancer in past 12 No months? Chief Complaint Pain,Paresthesia,Weakness, Decreased Solar Crew Member Strength Symptom Type Ache,Sharp,Numbness,Tingling Symptoms Relieved By Rest/Positioning Symptoms Aggravated By Standing,Lifting Prior Functional Limitations None Current Functional Limitations Reaching,Lifting,Driving, Sleeping,Standing Symptom Description Constant but Variable Level of pain today (0-10) 7 Pain scale - at its best (0-10) 6 Pain scale - at its worst (0-10) 9 Cervical Eval Palpation Cervical Muscles R Cervical Paraspinal,R Suboccipital,R CT Junction,R Upper Trapezius,R Thoracic Paraspinals Cervical/Thoracic Palpation Findings Tenderness,Muscle Guarding Posture Head/C-Spine Posture Sitting Position Flexed Head/C-Spine Posture Standing Position Flexed Flexibility Deficits Upper Trapezius Muscle Length (R) Moderate Tightness,(L) Moderate Tightness Levaetor Scapulae Muscle Length (R) Moderate Tightness,(L) Moderate Tightness Pectoralis Major Muscle Length (R) Moderate Tightness,(L) Moderate Tightness Passive Joint Mobility Cervical PIVM Dec: R C4/5 L C4/5 R C5/6 L C5/6 R C6/7 L C6/7 R C7/T1 L C7/T1 AROM Cervical Spine Extension Active Range of 25 Motion (degrees) Cervical Spine Flexion Active Range of 15 Motion (degrees) Cervical Spine Right Lateral Flexion 15 Active Range of Motion (degrees) Cervical Spine Left Lateral Flexion 25 Active Range of Motion (degrees) Cervical Spine Right Rotation Active 10 Range of Motion (degrees) Cervical Spine Left Rotation Active 30 Range of Motion (degrees) MMT Right Deltoid (C5) 4- Good- Biceps Brachii Strength Grade 4- Good- Wrist Extension Strength Grade 5 Normal Triceps Brachii Strength Grade 5 Normal Wrist Flexion Strength Grade 5 Normal Extensor Pollicis Longus Strength Grade 5 Normal Finger Abduction Strength Grade 5 Normal DTR Rt Biceps 2+ Rt Brachioradialis 2+ Rt Triceps 2+ Altered Sensation Bilateral Comment equal and intact to light touch sensation bilaterally Special Test C-Spine Foraminal Compression (Spurling) Positive Right Test C-spine Verterbral Accessory Movements Central P/A Hodges,Right P/A that Elicit Symptoms Hodges C-Spine Foraminal Distraction Test pt reported pain with distraction Wrist/Hand Eval Solar Crew Member/Pinch Strength Left Solar Crew Member Strength Measurement (lbs) 100 Right Solar Crew Member Strength Measurement (lbs) 62 Neck Disability Index Neck Disability Index Section 1: Pain Intensity The pain is moderate at the moment Section 2: Personal Care (washing, I can look after myself dressing, etc.) normally but it causes extra pain Section 3: Lifting I can only lift very light weights Section 4: Reading I can read as much as I want to with slight pain in my neck Section 5: Headaches I have moderate headaches, which come infrequently Section 6: Concentration I have a fair degree of difficulty in concentrating when I want to Section 7: Work I cannot do my usual work Section 8: Driving I can drive my car as long as I want with moderate pain in my neck Section 9: Sleeping My sleep is greatly disturbed (3-5 hrs sleepless) Section 10: Recreation I am able to engage in a few of my usual recreation activities because NDI Score 24 Outpatient Therapy Assessment Impairments Problems/Impairmments Palpation Tenderness,Impaired Range of Motion,Impaired Strength,Impaired Lifting, Impaired Recreational Activities,Impaired Work Activities,Subjective C/O Pain ,Impaired Self Care/Self Management Prognosis Rehab Potential Good Clinical Impression Consistent with Diagnosis Yes Short Term Goals Number of Weeks 3 Increase Range of Motion Yes: Improve cervical AROM by at least 5 degrees ea plane Increase Strength Yes: Improve R waiter strength to at least 80 lb Improve Neck Disability Index Score Yes: Improve NDI score to 19 or less to improve overall QOL Decrease Subjective C/O Pain Yes: Improve pain at worst to 7/10 to improve overall QOL Improve Self Care/Self Management Yes Patient to be Ind w/ HEP Yes Fpc Goals Number of Weeks 6 Decreased Palpation Tenderness Yes Increase Range of Motion Yes: Improve cervical AROM flex/ext/LF to at least 30 & rot to at least 50 Increase Strength Yes: Improve RUE strength to 5 /5 grossly to assist with function/work Restore Ability to Lift Objects to Yes: 10# with pain 5/10 or Shoulder Level less to assist with occupation /ADLs Improve Tolerance to Work Activities Yes Improve Neck Disability Index Score Yes: Improve NDI score to 14 or less to improve overall QOL Decrease Subjective C/O Pain Yes: Improve pain at worst to 5/10 to improve overall QOL Outpatient Therapy Plan of Care Treatment Plan May Include Therapeutic Exercise Including Home Yes Exercise Program Manual Therapy Techniques Yes Neuromuscular Re-education Yes Therapeutic Activities to Return to Yes Previous Functional/Work Level ADL/Self Care Education Yes Mechanical Traction Yes Dry Needling Yes Thermal Modalities Yes Electrical Stimulation Yes Ultrasound/Phonophoresis Yes Iontophoresis Yes Massage Yes Eval/Re-Eval Yes Frequency Times per week 2 Duration Number of Weeks 4-6 Addendums This patient is a candidate for social No or vocational rehab? Patient/Guardian verbally acknowledges Yes understanding of treatment program and consents to further treatment? Patient/Guardian verbally acknowledges Yes understanding of diagnosis, prognosis and goals for treatment? Eval Complexity PT Charges 41773 - Low Complexity Shoulder/Elbow Eval Shoulder Objective Measurements Elbow Objective Measurements PHYSICIAN CERTIFICATION: I certify the specified therapy services for Rohith Montgomery are required, authorized, and reviewed every 30 days.
== END 2023-10-03 10:00 | disposition home or self-care (01) ==
LOC: PT 09:00
PROVIDERS: Visit Provider Nurse Practitioner Family
DX: M50.30 Other cervical disc degeneration, unspecified cervical region (principal); R20.2 Paresthesia of skin; M79.601 Pain in right arm
CPT/HCPCS: 97010; 97014; 97110; 97140; 97163; G0283

== ENCOUNTER 2023-10-31 20:09 | Outpatient (CLI) | payer MEDICAID, SELFPAY ==
[2023-10-31 17:25] LABS: Adenovirus,PCR Not Detected (NotDetected); Coronavirus 19, PCR Not Detected (NotDetected); Coronavirus 229E Not Detected (NotDetected); Coronavirus NL63 Not Detected (NotDetected); Coronavirus OC43 Not Detected (NotDetected); Coronovirus HKU1,PCR Not Detected (NotDetected); Human Metapneumovirus Not Detected (NotDetected); Influenza A, PCR Not Detected (NotDetected); Influenza AH1, 2009 Not Detected (NotDetected); Influenza AH1, PCR Not Detected (NotDetected); Influenza AH3,PCR Not Detected (NotDetected); Influenza B, PCR Not Detected (NotDetected); Parainfluenza 1, PCR Not Detected (NotDetected); Parainfluenza 2, PCR Not Detected (NotDetected); Parainfluenza 3, PCR Not Detected (NotDetected); Parainfluenza 4, PCR Not Detected (NotDetected); Respiratory Syncytial Virus Not Detected (NotDetected); Rhinovirus/Enterovirus Not Detected (NotDetected)
== END 2023-10-31 23:59 ==
LOC: LAB.DROPOF 20:10
PROVIDERS: PCP Student in an Organized Health Care Education/Training Program; Visit Provider Student in an Organized Health Care Education/Training Program
DX: R05.8 Other specified cough (principal); R06.02 Shortness of breath; R51.9 Headache, unspecified; R09.89 Other specified symptoms and signs involving the circulatory and respiratory systems; R11.0 Nausea; Z20.822 Contact with and (suspected) exposure to COVID-19
CPT/HCPCS: 87632; 87635

== ENCOUNTER 2023-12-03 18:13 | Outpatient (CLI) | payer MEDICAID, SELFPAY | END 2023-12-03 23:59 | LOC: LAB.DROPOF 18:13 | PROVIDERS: PCP Nurse Practitioner Family; Visit Provider Nurse Practitioner Family | DX: J02.9 Acute pharyngitis, unspecified (principal) | CPT/HCPCS: 87070 ==

== ENCOUNTER 2024-02-12 14:13 | Outpatient (CLI) | payer MEDICAID, SELFPAY ==
[2024-02-12 18:35] LABS: Basophils % 0.5 % (0.1-2.0); Eosinophils # 0.1 K/mm3 (0.0-0.4); Hematocrit 45.1 % (42.0-52.0); Hemoglobin 14.9 g/dL (14.1-18.0); Lymphocytes # 1.7 K/mm3 (0.7-4.5); Lymphocytes % 34.1 % (10-50); Mean Corpuscular Hemoglobin 30.7 pg (27.0-31.2); Mean Corpuscular Volume 93.2 fl (80-94); Monocytes # 0.3 K/mm3 (0.1-1.0); Neutrophils % 59.4 % (37.0-80.0); Platelet Count 190 K/mm3 (142-424); Red Blood Count 4.84 M/mm3 (4.60-6.20); Red Cell Distribution Width 13.5 % (11.5-17.5)
[2024-02-12 19:08] LABS: Chloride 104 mmol/L (98-107)
[2024-02-12 19:09] LABS: Potassium 4.7 mmoL/L (3.5-5.1); Sodium 139 mmol/L (136-145)
[2024-02-12 19:11] LABS: Alanine Aminotransferase 40 U/L (12-78); Alkaline Phosphatase 47 U/L (38-126); Amylase 65 U/L (30-110); Anion Gap 13.7 mEq/L (5-15); Aspartate Amino Transferase 28 U/L (17-59); Bilirubin,Total 0.8 mg/dl (0.2-1.3); Blood Urea Nitrogen 11 mg/dl (9-20); Carbon Dioxide 26 mmol/L (22.0-30.0); Estimated Glomerular Filt Rate 87 ml/min (>60); GFR (African American) 105 ML/MIN (>60)
[2024-02-12 19:12] LABS: Albumin Level 4.6 g/dl (3.5-5.0); Albumin/Globulin Ratio 1.6 (1.1-1.8); Calcium 9.6 mg/dl (8.4-10.2); Globulin 2.8 g/dL (1.3-3.2); Glucose 88 mg/dl (74-100); Lipase 76 U/L (23-300); Total Protein,Serum 7.4 g/dl (6.3-8.2)
[2024-02-12 19:39] LABS: Thyroid Stimulating Hormone 0.81 uIU/mL (0.465-4.68)
[2024-02-12 19:40] LABS: Hemoglobin A1C 5.3 % (4.0-6.0)
== END 2024-02-12 23:59 | disposition home or self-care (01) ==
LOC: LAB.DROPOF 02-13 07:30
PROVIDERS: PCP Nurse Practitioner Family; Visit Provider Student in an Organized Health Care Education/Training Program
DX: R10.11 Right upper quadrant pain (principal); Z13.29 Encounter for screening for other suspected endocrine disorder; Z13.1 Encounter for screening for diabetes mellitus; R73.9 Hyperglycemia, unspecified
CPT/HCPCS: 80050; 80053; 82150; 83036; 83690; 84443; 85025

== ENCOUNTER 2024-02-27 10:29 | Outpatient (CLI) | payer MEDICAID, SELFPAY ==
--- NOTE | 2024-02-27 10:30 | CT_ITS ---
FINAL REPORT TECHNIQUE: Noncontrast CT exam of the abdomen and pelvis. This study was performed with techniques to keep radiation doses as low as reasonably achievable (ALARA). Individualized dose reduction techniques using automated exposure control or adjustment of mA and/or kV according to the patient''s size were employed. CLINICAL HISTORY: abd pain, hematochezia, concern for hernia COMPARISON: 04/27/2018 FINDINGS: Abdomen: Lung bases are clear. Liver, spleen, pancreas and adrenal glands have a normal CT appearance in their limited unenhanced state. The gallbladder is contracted. The kidneys show no stone disease or obstruction. No obvious renal mass is present. No ureteral stones are present. Pelvis: There is a tiny umbilical hernia containing fat. The appendix is normal. There is mild fecal impaction. No distal ureteral stones are seen. Bladder is unremarkable. No fluid collection or adenopathy is seen. IMPRESSION: No significant abdominal wall hernia. Reviewed, Interpreted and Dictated by Demario Crandall MD Transcribed by Nella Porter Authenticated and [facility]
== END 2024-02-27 23:59 | disposition home or self-care (01) ==
LOC: RAD 10:30
PROVIDERS: PCP Student in an Organized Health Care Education/Training Program; Visit Provider Student in an Organized Health Care Education/Training Program
DX: R10.9 Unspecified abdominal pain (principal); K92.1 Melena
CPT/HCPCS: 74176

== ENCOUNTER 2024-03-10 08:13 | Outpatient (CLI) | payer MEDICAID, SELFPAY ==
--- NOTE | 2024-03-10 08:14 | US_ITS ---
FINAL REPORT CLINICAL HISTORY: RUQ pain COMPARISON: None FINDINGS: Sonographic images of the right upper quadrant were obtained. The pancreas is partially obscured.The liver has an unremarkable appearance.The gallbladder appears normal without evidence of gallstones.There is no evidence of biliary ductal dilatation.The common duct measures 3 mm. Limited images of the right kidney are unremarkable. IMPRESSION: Unremarkable right upper quadrant ultrasound. Reviewed, Interpreted and Dictated by Ulises Vega III, MD Transcribed by Che Holliday Authenticated and . [facility]
== END 2024-03-10 23:59 | disposition home or self-care (01) ==
LOC: RAD 08:14
PROVIDERS: PCP Student in an Organized Health Care Education/Training Program; Visit Provider Student in an Organized Health Care Education/Training Program
DX: R10.11 Right upper quadrant pain (principal)
CPT/HCPCS: 76705

== ENCOUNTER 2024-04-27 14:08 | Outpatient (CLI) | payer MEDICAID, SELFPAY | END 2024-04-27 23:59 | disposition home or self-care (01) | LOC: LAB.DROPOF 04-28 14:08 | PROVIDERS: PCP Student in an Organized Health Care Education/Training Program; Visit Provider Student in an Organized Health Care Education/Training Program | DX: J02.9 Acute pharyngitis, unspecified (principal); Z87.891 Personal history of nicotine dependence | CPT/HCPCS: 87070 ==

== ENCOUNTER 2024-05-11 15:21 | Outpatient (CLI) | payer MEDICAID, SELFPAY ==
[2024-05-11 18:38] LABS: Bordetella Pertussis Not Detected (NotDetected); Chlamydophila Pneumoniae, PCR Not Detected (NotDetected); Coronavirus 19, PCR Not Detected (NotDetected); Coronavirus 229E Not Detected (NotDetected); Coronavirus NL63 Not Detected (NotDetected); Coronavirus OC43 Not Detected (NotDetected); Coronovirus HKU1,PCR Not Detected (NotDetected); Human Metapneumovirus Not Detected (NotDetected); Influenza A, PCR Not Detected (NotDetected); Influenza AH1, 2009 Not Detected (NotDetected); Influenza AH1, PCR Not Detected (NotDetected); Influenza AH3,PCR Not Detected (NotDetected); Influenza B, PCR Not Detected (NotDetected); Mycoplasma Pneumoniae, PCR Not Detected (NotDetected); Parainfluenza 1, PCR Not Detected (NotDetected); Parainfluenza 2, PCR Not Detected (NotDetected); Parainfluenza 3, PCR Not Detected (NotDetected); Parainfluenza 4, PCR Not Detected (NotDetected); Respiratory Syncytial Virus Not Detected (NotDetected); Rhinovirus/Enterovirus Not Detected (NotDetected)
[2024-05-17 22:10] LABS: Adenovirus,PCR Not Detected (NotDetected)
== END 2024-05-11 23:59 | disposition home or self-care (01) ==
LOC: LAB.DROPOF 05-12 15:22
PROVIDERS: PCP Student in an Organized Health Care Education/Training Program; Visit Provider Student in an Organized Health Care Education/Training Program
DX: R05.9 Cough, unspecified (principal); R52 Pain, unspecified
CPT/HCPCS: 87265; 87486; 87581; 87632; 87635

== ENCOUNTER 2024-06-29 10:59 | Outpatient (CLI) | payer MEDICAID, SELFPAY | END 2024-06-29 23:59 | disposition home or self-care (01) | LOC: LAB.DROPOF 06-30 11:00 | PROVIDERS: PCP Student in an Organized Health Care Education/Training Program; Visit Provider Student in an Organized Health Care Education/Training Program | DX: M54.50 Low back pain, unspecified (principal) | CPT/HCPCS: 87086 ==

== ENCOUNTER 2024-07-16 07:32 | Outpatient (CLI) | payer MEDICAID, SELFPAY ==
--- NOTE | 2024-07-16 07:39 | XR_ITS ---
FINAL REPORT CLINICAL HISTORY: low back pain COMPARISON: None FINDINGS: LUMBAR SPINE: AP and lateral views of the lumbar spine were obtained. There is no prior exam for comparison. There is no acute fracture or malalignment. Vertebral body height is preserved. Disc space height is preserved. No acute paraspinal abnormality. There is slight straightening of the normal curvature of the lumbar spine. IMPRESSION: No acute bony abnormality identified. Reviewed, Interpreted and Dictated by Ulises Vega III, MD Transcribed by Che Holliday Authenticated and [facility]
== END 2024-07-16 23:59 | disposition home or self-care (01) ==
LOC: RAD 07:34
PROVIDERS: PCP Student in an Organized Health Care Education/Training Program; Visit Provider Student in an Organized Health Care Education/Training Program
DX: M54.50 Low back pain, unspecified (principal)
CPT/HCPCS: 72100

== ENCOUNTER 2024-07-22 08:17 | Emergency (ER) | payer MEDICAID, SELFPAY ==
[2024-07-22 08:18] VITALS: BP 153/94; PULSE 98; RESP 18; TEMP 36.3; O2SAT 96; BMI 23.1
[2024-07-22 08:21] VITALS: BP 153/94; PULSE 91; O2SAT 96
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
[2024-07-22 08:31] VITALS: BP 141/93; PULSE 89; O2SAT 95
--- NOTE | 2024-07-22 08:56 | PC.NURSE ---
SHANNAN SHEETS at for update on POC
--- NOTE | 2024-07-22 08:56 | PC.NURSE ---
dr fischer at bedside
[2024-07-22 09:00] VITALS: BP 141/91; PULSE 83; O2SAT 97
[2024-07-22] MEDS: ACETAMINOPHEN 500MG TAB 1000 MG PO (09:06)
[2024-07-22] MEDS: LIDOCAINE 5% TRANSDERMAL PATCH 1 EACH TP (09:06)
[2024-07-22] MEDS: KETOROLAC 30MG/ML VIAL 15 MG IM (09:06)
[2024-07-22] MEDS: METHOCARBAMOL 500MG TABLET 1000 MG PO (09:06)
[2024-07-22 10:10] VITALS: BP 141/90; PULSE 87; RESP 18; TEMP 36.7; O2SAT 98
== END 2024-07-22 10:11 | disposition home or self-care (01) ==
PROVIDERS: Emergency Provider Emergency Medicine; PCP Student in an Organized Health Care Education/Training Program
DX: M54.32 Sciatica, left side (principal); M54.50 Low back pain, unspecified; M79.605 Pain in left leg
CPT/HCPCS: 96372; 99283; J1885

== ENCOUNTER 2024-07-28 15:46 | Outpatient (RCR) | payer MEDICAID, SELFPAY | END 2024-07-28 23:59 | disposition home or self-care (01) | LOC: PT 15:46 | PROVIDERS: Visit Provider Student in an Organized Health Care Education/Training Program | DX: M54.50 Low back pain, unspecified (principal); M79.605 Pain in left leg | CPT/HCPCS: 97163 ==

== ENCOUNTER 2024-09-09 07:12 | Outpatient (CLI) | payer MEDICAID, SELFPAY ==
--- NOTE | 2024-09-09 07:16 | CT_ITS ---
FINAL REPORT TECHNIQUE: Thin section axial CT images of the temporal bones were obtained. Coronal reformatted images were also obtained of the right temporal bone. This study was performed with techniques to keep radiation doses as low as reasonably achievable (ALARA). Individualized dose reduction techniques using automated exposure control or adjustment of mA and/or kV according to the patient's size were employed. CLINICAL HISTORY: recent bilat ear infections, now having hearing loss COMPARISON: None FINDINGS: Right temporal bone: The external auditory canal is patent. There is abnormal soft tissue density in the middle ear cavity surrounding the ossicles, which are otherwise intact. The internal auditory canal is unremarkable in appearance. The cochlea and semicircular canals are intact. There is fluid present in the right mastoid air cells without evidence of bone destruction. No bony mass is identified. Left temporal bone: Thin sections in the coronal plane were not obtained through the left temporal bone. The internal auditory canal has an unremarkable appearance. The inner ear structures are unremarkable. The external auditory canal has an unremarkable appearance. No abnormality is identified of the middle ear cavity. The ossicles are intact. There is a tiny amount of fluid in the inferior most mastoid air cells, which are otherwise unremarkable in appearance. No bony mass is identified. The visualized paranasal sinuses are unremarkable in appearance. IMPRESSION: Findings consistent with right otitis media and mastoiditis. Reviewed, Interpreted and Dictated by Komal Keen MD Transcribed by Che Holliday Authenticated and [facility]
== END 2024-09-09 23:59 | disposition home or self-care (01) ==
PROVIDERS: PCP Student in an Organized Health Care Education/Training Program; Visit Provider Student in an Organized Health Care Education/Training Program
DX: H66.003 Acute suppurative otitis media without spontaneous rupture of ear drum, bilateral (principal); H90.3 Sensorineural hearing loss, bilateral
CPT/HCPCS: 70480

== ENCOUNTER 2024-09-09 09:28 | Outpatient (POV) | payer MEDICAID, SELFPAY | END 2024-09-09 23:59 | disposition home or self-care (01) | LOC: SC 09:28 | PROVIDERS: Visit Provider Specialist/Technologist | DX: Z00.00 Encounter for general adult medical examination without abnormal findings (principal) ==

== ENCOUNTER 2025-02-15 04:53 | Emergency (ER) | payer MEDICAID, SELFPAY ==
--- NOTE | 2025-02-15 04:52 | ECG_ITS ---
APPROVED REPORT Exam: Resting ECG HR:91 bpm ECG Measurements Heart Rate 91 AXES OR 173 P 72 QRSd 106 QRS 78 QT 338 T 48 QTc 387 Conclusion SINUS RHYTHM POSSIBLE LEFT ATRIAL ENLARGEMENT [-0.1mV P-WAVE IN V1/V2] BORDERLINE ECG UNCONFIRMED REPORT Electronically signed by : JOSE ACUÑA, 02/17/2025 01:08:46
[2025-02-15 04:55] VITALS: BP 125/86; PULSE 100; RESP 20; TEMP 36.6; O2SAT 97; BMI 22.5
[2025-02-15 05:00] VITALS: BP 131/84; PULSE 90; RESP 23; O2SAT 96
--- NOTE | 2025-02-15 05:01 | CT_ITS ---
PROCEDURE INFORMATION: Exam: CT Head Without Contrast Exam date and time: 02/15/2025 5:20 AM Age: 34 years old Clinical indication: Other: Seizure; Additional info: New onset seizure TECHNIQUE: Imaging protocol: Computed tomography of the head without contrast. Radiation optimization: All CT scans at this facility use at least one of these dose optimization techniques: automated exposure control; mA and/or kV adjustment per patient size (includes targeted exams where dose is matched to clinical indication); or iterative reconstruction. COMPARISON: CT ANGIO HEAD 09/04/2023 7:54 AM FINDINGS: Brain: There is no evidence of acute parenchymal hemorrhage, extra-axial collection, or acute infarction. There is no mass effect, midline shift, or downward herniation. Cerebral ventricles: No ventriculomegaly. Paranasal sinuses: Visualized sinuses are unremarkable. No fluid levels. Mastoid air cells: Visualized mastoid air cells are well aerated. Bones: Unremarkable. No acute fracture. Soft tissues: Unremarkable. IMPRESSION: No acute intracranial abnormality.
--- OUTSIDE RECORDS SUMMARY | 2025-02-15 05:02 | XMS_ITS | Clinical Summary ---
Author Organization [facility] Address [address] [place], [place] [id number] Phone [email or web address] Providers Care Public Affairs Specialist Name Role Phone Unavailable Primary Care Provider Unavailabl e Allergies No known active allergies Medications No known medications Active Problems No known active problems Social History Tobacco Use Types Packs/Day Years Used Date Smoking Tobacco: Never Assessed Stress Answer Date Recorded Stress in your Life Not on file 07/15/2024 Dealing with Stress 3 07/15/2024 Sex and Gender Information Value Date Recorded Sex Assigned at Not on file Legal Sex Male 3:21 PM CDT Gender Identity Not on file Sexual Orientation Not on file Last Filed Vital Signs Vital Sign Reading Time Taken Comments Blood Pressure 140/78 04/21/2024 5:19 PM EDT Pulse 75 04/21/2024 5:19 PM EDT Temperature 37.1 C (98.7 F) 04/21/2024 5:19 PM EDT Respiratory Rate - - Oxygen Saturation 96% 04/21/2024 5:19 PM EDT Inhaled Oxygen Concentration - - Weight 81.4 kg (179 lb 6.4 oz) 04/21/2024 5:19 P M EDT Height 162.1 cm (5' 3.8 ) 04/21/2024 5:19 PM EDT Body Mass Index 30.99 04/21/2024 5:19 PM EDT Plan of Treatment Health Maintenance Due Date Last Done Comments Dental Cleaning/Exam 1991 HIV Screening 1991 Hepatitis C Screening 1991 Hep B Infection Screening - Triple Screen 2009 Hepatitis B Immunization (1 of 3 - 19+ 3-dose series) 2010 Covid-19 Immunization (1 - 2 024-25 season) 2024 Annual Preventive Exam 04/21/2025 04/21/2024 Influenza Immunization (Seas on Ended) 2025 Tetanus Diphtheria and Pertu ssis Immunization (2 - Td or Tdap) 06/27/2031 06/27/2021 HIB Immunization Aged Out No longer e ligible based on patient's age to complete this topic HPV Immunization Aged Out No longer e ligible based on patient's age to complete this topic Hepatitis A Immunization Aged Out No longer eligible based on patient's age to complete this topic Pneumococcal: Ped (0 to 5 Yr s) and At-Risk Member (6 to 64 Yrs) Aged Out No longer e ligible based on patient's age to complete this topic Polio Immunization Aged Out No longer eligible based on patient's age to complete this topic Varicella Immunization Aged Out No lo nger eligible based on patient's age to complete this topic
[2025-02-15 05:06] LABS: Basophils % 0.5 % (0.1-2.0); Eosinophils # 0.1 Kmm3 (0.0-0.4); Eosinophils % 1.5 % (0.1-12.0); Hematocrit 40.8 % (42.0-52.0); Hemoglobin 12.9 g/dL (14.1-18.0); Immature Granulocytes # 0.05 10^3uL; Immature Granulocytes % 0.8 %; Lymphocytes # 1.6 K/mm3 (0.7-4.5); Lymphocytes % 26.3 % (10-50); Mean Corpuscular HGB Conc 31.6 g/dL (31.8-35.4); Mean Corpuscular Hemoglobin 26.7 pg (27.0-31.2); Mean Corpuscular Volume 84.5 fl (80-94); Mean Platelet Volume 11.2 fl (7.4-10.4); Monocytes # 0.4 K/mm3 (0.1-1.0); Monocytes % 5.8 % (1.7-9.3); Neutrophils % 65.1 % (37.0-80.0); Nucleated Red Blood Cells # 0 10^3/uL; Nucleated Red Blood Cells % 0 %; Platelet Count 238 K/mm3 (142-424); Red Blood Count 4.83 M/mm3 (4.60-6.20); Red Cell Distribution Width 13.2 % (11.5-17.5); Red Cell Distribution Width-SD 40.4 fL; White Blood Count 6.2 K/mm3 (4.8-10.8)
[2025-02-15 05:09] LABS: Chloride 108 mmol/L (98-107)
[2025-02-15 05:10] LABS: Albumin Level 4.9 g/dl (3.5-5.0); Potassium 4.2 mmoL/L (3.5-5.1); Sodium 141 mmol/L (136-145)
--- NOTE | 2025-02-15 05:11 | HMH.EDGENADL ---
Discharge Plan Disposition Patient Disposition: Home, Self-Care Prescriptions Prescriptions: New levetiracetam 500 mg tablet 500 mg PO BID Qty: 28 0RF levetiracetam 1,000 mg tablet 1,000 mg PO BID 60 Days Qty: 120 2RF diazepam 10 mg/spray (0.1 mL) spray,non-aerosol 10 mg intranasal ONCE Qty: 1 0RF Rx Instructions: Please use the nasal spray if you have a seizure lasting longer than a couple of minutes. If you use the spray, recommend evaluation by medical professional. No Action ondansetron 4 mg tablet,disintegrating 4 mg PO Q8H PRN (Reason: nausea and vomiting) Qty: 10 0RF Referrals Follow up/Referrals: Ramonita Vázquez APRN [Primary Care Provider, Medical] - See instructions Alis Matamoros MD [Staff Physician, Neurology] - See instructions Activity Restrictions/Add. Instructions Additional Instructions/Restrictions: Please begin taking Keppra as prescribed for prevention of seizures. Please use the nasal spray as needed for seizure. Please follow-up with your primary care provider. Please follow-up with neurology for further assessment. Clinical Impressions Clinical Impression: Single unprovoked seizure Instructions Patient Instructions: DI for Seizure (Not Epilepsy/Seizure Disorder), Seizure Safety Precautions-Adult Print Language Print Language: [place] Citizen Discharge ED Provider: Porter Alexandra General Adult HPI General Chief complaint: Seizure Stated complaint: seizure Time Seen by Provider: 02/15/25 05:01 Mode of Arrival: EMS Source of Information: Patient Description of Symptoms (Recalled from ER Triage Doc. by RN): patient to ED via EMS after he woke his up with seizure like activity at approximately 0400 this morning. Per EMS patient was not oriented to self or surroundings upon arrival to scene but has since improved. History of Present Illness HPI narrative: 34-year-old male presents for seizure-like activity. Happened at approximate 4:00 this morning. called EMS. reports that he was rigid and shaking in bed, completely unresponsive. This lasted for several minutes. After he was extremely confused and nonverbal, slowly improving throughout EMS transport. On arrival patient reports that he feels a little confused but otherwise has no complaints. He denies any recent fever or illness. Denies any drug use besides marijuana. Denies any recent trauma. He reports that he has had a couple of episodes of seizure-like activity in the past, once when he was very young, once in his teens and once in his 20s. He also reports that he had some episodes of vision loss in the past and has seen a eye doctor but has not been fully evaluated. Denies any current neurologic symptoms. Related Data Previous Rx's ?Medication ?Instructions ?Recorded ondansetron 4 mg disintegrating 4 mg PO Q8H PRN nausea and 01/26/25 tablet vomiting #10 tabs diazepam 10 mg/spray (0.1 mL) 10 mg (0.1 mL) intranasal ONCE #1 02/15/25 nasal spray blister levetiracetam 1,000 mg tablet 1,000 mg PO BID 2 months #120 tabs 02/15/25 levetiracetam 500 mg tablet 500 mg PO BID #28 tabs 02/15/25 Allergies Allergy/AdvReac Type Severity Reaction Status Date / Time No Known Allergies Allergy Verified 01/26/25 11:57 [facility] Disclaimer: The information contained in this section may have been updated after the patient was seen, as this information can be updated by other users. Medical History URI (upper respiratory infection) Neural hearing loss, bilateral Fluid level behind tympanic membrane of both ears Cerumen debris on tympanic membrane of both ears Hearing loss Headache Sensorineural hearing loss (SNHL) of both ears Bulging of cervical intervertebral disc Tingling of left upper extremity Tingling of right upper extremity Seasonal allergies Vomiting Acute shoulder pain Viral URI with cough Tonsillitis Cough Viral syndrome Bacteriuria with pyuria Pharyngitis Surgical History No significant past surgical history Family History Other No significant family history Social History Smoking Status: Current every day smoker tobacco type: cigarettes packs per day: 1 and smokeless tobacco smoking status stop date: 03/08/2024 alcohol intake: never substance use type: marijuana current occupational status: other Travel in the last 8 weeks?: None household members: family housing: house Have you lived/traveled outside [place] in past 30 days?: No Contact w/someone who lives/traveled outside [place] past 30 days?: No Exposure to someone with infectious disease in past 14 days?: No Do you have a fever (greater than 100.4 F or 38 C)?: No Have you tested positive for COVID-19?: No Exposed to someone with COVID-19 in past 14 days?: No Do you have a sore throat?: No Do you have a cough?: No Do you have any weakness?: No Do you have any diarrhea?: No Are you experiencing any unusual bleeding?: No Do you have any muscle aches/pain?: No Do you have any abdominal pain?: No Are you experiencing loss of taste or smell?: No Other Medical History Have you received the Pneumonia Vaccine: No ROS Obtained: Yes All systems reviewed & no additional complaints except as documented Physical Exam General General appearance: alert and in no apparent distress Head Head exam: atraumatic and normocephalic Eye Eye exam: Present normal appearance, PERRL and EOMI ENT ENT exam: Present normal oropharynx and normal external ear exam Neck Neck exam: Present normal inspection and full ROM Chest Chest inspection: Present normal inspection and symmetric chest wall rise; Absent tenderness Respiratory Respiratory exam: Present normal lung sounds bilaterally; Absent respiratory distress Cardiovascular Cardiovascular exam: Present regular rate and normal rhythm Abdominal Exam Abdominal exam: Present soft; Absent distention, tenderness or guarding Extremities Exam Extremities exam: Present normal inspection; Absent edema or joint swelling Back Exam Back exam: Present normal inspection; Absent tenderness Neurological Exam Neurological exam: Present alert and oriented X3; Absent motor sensory deficit Psychiatric Psychiatric exam: Present normal affect and normal mood Skin Skin exam: Present warm, dry and normal color Lymphatic Lymphatic Findings: no adenopathy Medical Decision Making Medical Records Medical records reviewed: Yes I reviewed the patient's medical records. Screening: Per USPSTF and CDC recommendations, given the prevalence of disease in our region, it is our hospital?s policy to screen for HIV and viral Hepatitis for all patients aged 18 and over and those with ongoing risk factors. Willem Inquiry Pt receiving controlled substance: No Willem was queried for this patient: No Vital Signs: 02/15/25 04:55 02/15/25 05:00 02/15/25 05:30 Temperature 98 F Temperature Source Oral Pulse Rate 90 80 Pulse Rate [Left] 100 H Respiratory Rate 20 23 22 Blood Pressure 131/84 120/78 Blood Pressure [Right Arm] 125/86 Blood Pressure Mean [Right Arm] 99 Blood Pressure Source Blood Pressure Source [Right Arm] Automatic Cuff Blood Pressure Position Blood Pressure Position [Right Arm] Sitting 02 Sat by Pulse Oximetry 97 96 95 Oxygen Delivery Method Room Air 02/15/25 06:00 02/15/25 06:30 02/15/25 06:37 Temperature 97.9 F Temperature Source Oral Pulse Rate 75 72 76 Pulse Rate [Left] Respiratory Rate 12 12 20 Blood Pressure 125/77 128/80 128/80 Blood Pressure [Right Arm] Blood Pressure Mean [Right Arm] Blood Pressure Source Automatic Cuff Blood Pressure Source [Right Arm] Blood Pressure Position Sitting Blood Pressure Position [Right Arm] 02 Sat by Pulse Oximetry 98 98 Oxygen Delivery Method Room Air Lab Data Lab results reviewed: Yes I reviewed the patient's lab results. Lab Results 02/15/25 04:40: WBC 6.2, RBC 4.83, Hgb 12.9 L, Hct 40.8 L, MCV 84.5, MCH 26.7 L, MCHC 31.6 L, RDW 13.2, Plt Count 238, MPV 11.2 H, Neut % (Auto) 65.1, Lymph % (Auto) 26.3, [place] % (Auto) 5.8, Eos % (Auto) 1.5, Baso % (Auto) 0.5, Neut # (Auto) 4.0, Lymph # (Auto) 1.6, [place] # (Auto) 0.4, Eos # (Auto) 0.1, Baso # (Auto) 0.0, Sodium 141, Potassium 4.2, Chloride 108 H, Carbon Dioxide 24, Anion Gap 13.2, BUN 11, Creatinine 1.00, Estimated Creat Clear 121, Estimated GFR 86, Est GFR ( Amer) 104, Glucose 139 H, Calcium 9.2, Magnesium 1.8, Total Bilirubin 0.4, AST 30, ALT 26, Alkaline Phosphatase 54, Total Protein 7.7, Albumin 4.9, Globulin 2.8, Albumin/Globulin Ratio 1.8, Plasma/Serum Alcohol < 10 02/15/25 05:11: Urine Opiates Screen Negative, Urine Methadone Screen Negative, Ur Barbituates Screen Negative, Ur Phencyclidine Scrn Negative, Ur Amphetamines Screen Negative, U Benzodiazepines Scrn Negative, Urine Cocaine Screen Negative, U Marijuana (THC) Screen Positive H 02/15/25 04:40 02/15/25 04:40 Orders (Tests/Meds): ED MEDICATIONS Discontinued Medications Generic Name Dose Route Start Last Admin Trade Name Brittney PRN Reason Stop Dose Admin Levetiracetam 2,000 mg/ Sodium 120 mls @ 240 mls/hr 02/15/25 06:01 02/15/25 06:09 Chloride IV 02/15/25 06:02 240 mls/hr ONCE ONE Administration ORDERS Category Date Time Status CT head/brain wo con Stat Cat Scan 02/15/25 05:01 Completed CBC w/Auto Diff [Complete Blood Count Auto Diff] Stat Lab 02/15/25 04:40 Completed CMP [Comprehensive Metabolic Panel] Stat Lab 02/15/25 04:40 Completed Ethanol [Ethyl Alcohol] Stat Lab 02/15/25 04:40 Completed Magnesium Stat Lab 02/15/25 04:40 Completed UDS [Drug Screen,Urine] Stat Lab 02/15/25 05:11 Completed Medical Decision Narrative: 34-year-old male with history of seizure-like activity in the past, presents for seizure-like activity at home while sleeping. History was obtained via interactive discussion with patient, EMS, family, chart review. On arrival, patient is [afebrile, hemodynamically stable, satting appropriately, alert, oriented x4, GCS 15], moving all extremities spontaneously. Full physical exam performed and significant for no significant physical exam abnormalities Differential includes but is not limited to new onset unprovoked seizure, intoxication, withdrawal, nonepileptic spell. Patient was given 2 g of Keppra for symptomatic management and correction of underlying abnormalities. Workup initiated including CT head, CBC CMP UDS. On re-evaluation, patient [remains afebrile, HD stable.] Laboratory workup independently interpreted by me and significant for no significant laboratory abnormalities,. Imaging independently interpreted by me and significant for no evidence of intracranial mass or hydrocephalus. See radiology read for full review of final results. EKG independently interpreted by me and significant for sinus rhythm, ventricular rate of 91, no concerning ischemic changes, no evidence of arrhythmia. Given patient history, exam and workup, patient's presentation most likely represents new onset unprovoked seizure. Patient has had a couple of episodes over a decade ago, but has never had formal neurology evaluation. The presentation described by his and EMS are very consistent with a seizure. I had extensive discussion with patient regarding his presentation. I gave patient seizure precautions including no driving or operating heavy machinery for 3 months per [place] law, as well as precautions regarding water, fire, heights etc. Patient was willing to initiate antiepileptic medication and so was started on 500 mg of Keppra twice daily for 2 weeks, followed by 1 g twice daily until follow-up with neurology. I recommended he call and schedule follow-up with Dr. Matamoros for further assessment. Patient was discharged in stable condition with return precautions and prescription for nasal diazepam and Keppra. Procedures Risk/Benefits of Procedure(s) Were Explained: Yes Critical Care Critical Care Time Critical Care Time: No
[2025-02-15 05:12] LABS: Anion Gap 13.2 mEq/L (5-15); Blood Urea Nitrogen 11 mg/dl (9-20); Carbon Dioxide 24 mmol/L (22.0-30.0); Creatinine Clearance Estimated 121 mL/min (50-200); Estimated Glomerular Filt Rate 86 ml/min (>60); GFR (African American) 104 ML/MIN (>60); Magnesium 1.8 mg/dl (1.6-2.3)
[2025-02-15 05:13] LABS: Alanine Aminotransferase 26 U/L (12-78); Albumin/Globulin Ratio 1.8 (1.1-1.8); Alkaline Phosphatase 54 U/L (38-126); Aspartate Amino Transferase 30 U/L (17-59); Bilirubin,Total 0.4 mg/dl (0.2-1.3); Calcium 9.2 mg/dl (8.4-10.2); Globulin 2.8 g/dL (1.3-3.2); Glucose 139 mg/dl (74-100); Total Protein,Serum 7.7 g/dl (6.3-8.2)
[2025-02-15 05:22] LABS: Ethyl Alcohol < 10 mg/dl (0-10)
[2025-02-15 05:29] LABS: Amphetamine/Metha Screen,Urine Negative ng/ml (<1000)
[2025-02-15 05:30] VITALS: BP 120/78; PULSE 80; RESP 22; O2SAT 95
[2025-02-15 05:30] LABS: Barbiturates Screen,Urine Negative ng/ml (<200); Benzodiazepines Screen,Urine Negative ng/ml (<200)
[2025-02-15 05:31] LABS: Cannabinoid Screen,Urine Positive ng/ml (<50)
[2025-02-15 05:32] LABS: Cocaine Screen,Urine Negative ng/ml (<300); Methadone Screen,Urine Negative ng/ml (<300)
[2025-02-15 05:33] LABS: Opiate Screen,Urine Negative ng/ml (<300)
[2025-02-15 05:34] LABS: Phencyclidine Screen,Urine Negative ng/ml (<25)
[2025-02-15 06:00] VITALS: BP 125/77; PULSE 75; RESP 12; O2SAT 98
[2025-02-15] MEDS: levETIRAcetam 2,000 MG in 0.9 % SODIUM CHLORIDE 100 ML 240 MG IV (06:09)
[2025-02-15 06:30] VITALS: BP 128/80; PULSE 72; RESP 12; O2SAT 98
[2025-02-15 06:37] VITALS: BP 128/80; PULSE 76; RESP 20; TEMP 36.6; O2SAT 99
--- NOTE | 2025-02-15 06:50 | PC.NURSE ---
IV discontinued. Catheter tip intact. Bleeding controlled.
== END 2025-02-15 06:49 | disposition home or self-care (01) ==
PROVIDERS: Emergency Provider Emergency Medicine; PCP Nurse Practitioner Family
DX: R56.9 Unspecified convulsions (principal); F17.210 Nicotine dependence, cigarettes, uncomplicated
CPT/HCPCS: 70450; 80053; 80307; 80320; 83735; 85025; 93005; 96374; 99285; J1953